=== PATIENT | female | born 1955 | race Two or more races ===

== ENCOUNTER 2017-12-26 14:31 | Inpatient (IN) | payer MEDICAID, OTHER ==
[~2017-12-26] VITALS: Ht 160 cm; Wt 100.6 kg
[2017-12-26] MEDS ORDERED: SODIUM CHLORIDE 0.9% 1,000 ML IV ONE (14:58)
[2017-12-26] MEDS ORDERED: ONDANSETRON HCL 4 MG/2 ML VIAL IV ONE (15:00)
[2017-12-26] MEDS ORDERED: METF-371 PO (16:13)
[2017-12-26] MEDS ORDERED: FERR-20 PO (16:13)
[2017-12-26] MEDS ORDERED: METO25TA5 PO (16:13)
[2017-12-26] MEDS ORDERED: SUCR1TAB38 OR (16:13)
[2017-12-26] MEDS ORDERED: FURO40TA4 PO (16:13)
[2017-12-26] MEDS ORDERED: PROP60CA8 PO (16:13)
[2017-12-26] MEDS ORDERED: SIMV-8 PO (16:13)
[2017-12-26] MEDS ORDERED: MELO1TAB56 PO (16:13)
[2017-12-26] MEDS ORDERED: SPIR25TA89 PO (16:13)
[2017-12-26] MEDS ORDERED: DEXTROSE (50%) 50ML SYRG IV PRN (16:15)
[2017-12-26] MEDS ORDERED: SODIUM CHLORIDE 0.9% 2,000 ML IV ONE (16:15)
[2017-12-26 16:18] LABS: Basophils # (auto) 0.1 uL; Eosinophils # (auto) 0.4 uL; Lymphocytes % (auto) 4.2 % (10.0-50.0)
[2017-12-26 16:20] LABS: Basophils % (auto) 0.2 % (0.0-2.0); Eosinophils % (auto) 1.8 % (0.0-7.0); Hematocrit 40.3 % (36.0-46.0); Mean Corpuscular Hemoglobin 26.2 pg (28.0-32.0); Mean Corpuscular Hgb Conc. 32.2 g/dL (32.0-36.0); Mean Corpuscular Volume 81.6 fL (80.0-100.0); Monocytes # (auto) 1.4 uL; Monocytes % (auto) 5.8 % (0.0-12.0); Neutrophils # (auto) 21.5 uL; Nucleated Red Blood Cells % 0.1 %; Platelet Count (auto) 173 10^3/uL (140-450); Red Blood Cells 4.94 10^6/uL (4.0-5.20); Red Cell Distribution Width 17.8 % (11.8-14.3); White Blood Cell 24.4 10^3/uL (4.4-10.8)
[2017-12-26] MEDS ORDERED: NALBUPHINE HCL 10 MG/1ml INJECTION IV PRN (16:30)
[2017-12-26] MEDS ORDERED: ONDANSETRON HCL 4 MG/2 ML VIAL IV PRN (16:30)
[2017-12-26] MEDS ORDERED: NITROGLYCERIN 0.4 MG SL TAB SL PRN (16:30)
[2017-12-26] MEDS ORDERED: HYDROcodone-ACET 5/325MG TAB PO PRN (16:30)
[2017-12-26] MEDS ORDERED: ACETAMINOPHEN 325 MG TAB PO PRN (16:30)
[2017-12-26 16:36] LABS: Alanine Aminotransferase 39 U/L (13-56); Albumin 3.1 g/dL (3.4-5.0); Amylase 52 U/L (25-115); Anion Gap 12 (5-15); Aspartate Aminotransferase 41 U/L (15-37); BUN/Creatinine Ratio 14.2; Bilirubin, Total 1.3 mg/dL (0.2-1.0); Blood Urea Nitrogen 18 mg/dL (7-18); Calcium 9.5 mg/dL (8.5-10.1); Carbon Dioxide 22 mmol/L (21-32); Chloride 103 mmol/L (98-107); GFR African American 55 mL/min; GFR Non-African American 45 mL/min; Glucose 227 mg/dL (74-106); Lipase 244 U/L (73-393); Magnesium 1.6 mg/dL (1.6-2.6); Sodium 137 mmol/L (136-145); Total Protein 8.4 g/dL (6.4-8.2)
[2017-12-26] MEDS ORDERED: cefTRIAXone 1GM/10ml IVPUSH 10 ML IV ONE (16:45)
[2017-12-26] MEDS ORDERED: VANCOMYCIN PER PHARMACY 0 MG IV SCH (16:45)
[2017-12-26] MEDS: SODIUM CHLORIDE 0.9% 1,000 ML IV SCH (16:52)
[2017-12-26 17:01] LABS: Alkaline Phosphatase 1221 U/L (45-117)
[2017-12-26] MEDS: ACCU-CHEK COMFORT CURVE STRIP VI SCH ×2 (17:43→22:18)
[2017-12-26] MEDS: InsuLIN REG 1unit/0.01ml Soln (100units/ml) SC SCH ×2 (17:45→22:30)
[2017-12-26] MEDS: Boost Glucose Control 8 Ounces PO SCH (17:47)
[2017-12-26] MEDS: SUCRALFATE 1 GM/10 ML ORAL SUSP PO SCH ×2 (17:55→22:17)
[2017-12-26] MEDS: VANCOMYCIN 1GM/250ML 250 ML IV SCH (18:54)
[2017-12-26 21:00] VITALS: BP 90/52
[2017-12-26 22:00] VITALS: BP 90/52
[2017-12-26] MEDS: METOPROLOL TARTRATE 25 MG TAB PO SCH (22:00)
[2017-12-26] MEDS: ATORVASTATIN 20 MG TAB PO SCH (22:17)
[2017-12-26] MEDS: FAMOTIDINE 20 MG TAB PO SCH (22:17)
[2017-12-26] MEDS: TEMAZEPAM 15 MG CAP PO PRN (22:17)
[2017-12-26 22:27] LABS: Lactic Acid w/Reflex 2.1 mmol/L (0.4-2.0)
[2017-12-26] MEDS: INSULIN LANTUS (GLARGINE) 1 /0.01ml (100units/ml) SC SCH (22:30)
[2017-12-26] MEDS ORDERED: INSLANTI SC (22:58)
[2017-12-27] MEDS: SODIUM CHLORIDE 0.9% 1,000 ML IV SCH ×3 (00:38→18:12)
[2017-12-27 05:00] VITALS: BP 99/60
[2017-12-27 06:03] LABS: Basophils # (auto) 0 uL; Basophils % (auto) 0.2 % (0.0-2.0); Eosinophils # (auto) 0.1 uL; Eosinophils % (auto) 1.4 % (0.0-7.0); Hematocrit 29.4 % (36.0-46.0); Hemoglobin 9.9 g/dL (12.2-16.2); Lymphocytes # (auto) 0.6 uL; Mean Corpuscular Hemoglobin 27.3 pg (28.0-32.0); Mean Corpuscular Hgb Conc. 33.8 g/dL (32.0-36.0); Mean Corpuscular Volume 80.6 fL (80.0-100.0); Monocytes # (auto) 0.5 uL; Monocytes % (auto) 6.2 % (0.0-12.0); Neutrophils # (auto) 6.8 uL; Neutrophils % (auto) 84.2 % (37.0-80.0); Platelet Count (auto) 86 10^3/uL (140-450); Red Blood Cells 3.64 10^6/uL (4.0-5.20); Red Cell Distribution Width 17.3 % (11.8-14.3); White Blood Cell 8.1 10^3/uL (4.4-10.8)
[2017-12-27 06:09] LABS: Albumin 2.5 g/dL (3.4-5.0); BUN/Creatinine Ratio 20.8; Bilirubin, Total 0.7 mg/dL (0.2-1.0); Calcium 8.1 mg/dL (8.5-10.1); Potassium 3.7 mmol/L (3.5-5.1); Total Protein 6.5 g/dL (6.4-8.2)
[2017-12-27] MEDS: ACCU-CHEK COMFORT CURVE STRIP VI SCH ×4 (06:20→22:05)
[2017-12-27] MEDS: InsuLIN REG 1unit/0.01ml Soln (100units/ml) SC SCH ×4 (06:20→22:06)
[2017-12-27] MEDS: SUCRALFATE 1 GM/10 ML ORAL SUSP PO SCH ×4 (06:20→22:15)
[2017-12-27 08:00] VITALS: BP 102/45
[2017-12-27] MEDS: Boost Glucose Control 8 Ounces PO SCH ×3 (08:00→18:00)
[2017-12-27 08:31] VITALS: BP 102/45
[2017-12-27] MEDS: FERROUS SULFATE 325 MG TAB PO SCH (10:16)
[2017-12-27] MEDS: METOPROLOL TARTRATE 25 MG TAB PO SCH ×2 (10:16→22:03)
[2017-12-27] MEDS: MULTIPLE VITAMIN TAB PO SCH (10:16)
[2017-12-27] MEDS: FAMOTIDINE 20 MG TAB PO SCH ×2 (10:16→22:01)
[2017-12-27 12:57] VITALS: BP 108/54
[2017-12-27 16:28] VITALS: BP 103/53
[2017-12-27] MEDS: cefTRIAXone 1GM/10ml IVPUSH 10 ML IV SCH (18:10)
[2017-12-27] MEDS: VANCOMYCIN 1GM/250ML 250 ML IV SCH (20:00)
[2017-12-27 22:00] VITALS: BP 108/56
[2017-12-27] MEDS: ATORVASTATIN 20 MG TAB PO SCH (22:01)
[2017-12-27] MEDS: TEMAZEPAM 15 MG CAP PO PRN (22:15)
[2017-12-27] MEDS: INSULIN LANTUS (GLARGINE) 1 /0.01ml (100units/ml) SC SCH (22:17)
[2017-12-28 01:34] LABS: Urine Bacteria NONE SEEN /hpf (None Seen); Urine Blood Negative /uL (Negative); Urine Specific Gravity 1.016 (1.001-1.035); Urine WBC 47 /hpf (0 - 5)
[2017-12-28] MEDS: SODIUM CHLORIDE 0.9% 1,000 ML IV SCH ×2 (02:52→09:27)
[2017-12-28 05:48] VITALS: BP 126/76
[2017-12-28] MEDS: SUCRALFATE 1 GM/10 ML ORAL SUSP PO SCH ×2 (06:22→11:57)
[2017-12-28] MEDS: InsuLIN REG 1unit/0.01ml Soln (100units/ml) SC SCH ×2 (06:23→11:58)
[2017-12-28] MEDS: ACCU-CHEK COMFORT CURVE STRIP VI SCH ×2 (06:23→11:58)
[2017-12-28 06:37] LABS: Basophils # (auto) 0 uL; Basophils % (auto) 0.4 % (0.0-2.0); Eosinophils # (auto) 0.2 uL; Hemoglobin 9.7 g/dL (12.2-16.2); Lymphocytes # (auto) 0.5 uL; Monocytes # (auto) 0.3 uL; Neutrophils # (auto) 3.1 uL; Nucleated Red Blood Cells % 0.1 %; Platelet Count (auto) 70 10^3/uL (140-450); White Blood Cell 4.2 10^3/uL (4.4-10.8)
[2017-12-28 06:40] LABS: Eosinophils % (auto) 4.9 % (0.0-7.0); Lymphocytes % (auto) 13.2 % (10.0-50.0); Mean Corpuscular Hgb Conc. 33.5 g/dL (32.0-36.0); Mean Corpuscular Volume 80.6 fL (80.0-100.0); Monocytes % (auto) 7.2 % (0.0-12.0); Neutrophils % (auto) 74.3 % (37.0-80.0); Red Cell Distribution Width 17.6 % (11.8-14.3)
[2017-12-28 06:54] LABS: Potassium 3.7 mmol/L (3.5-5.1)
[2017-12-28 06:59] LABS: Calcium 8.2 mg/dL (8.5-10.1)
[2017-12-28 08:00] VITALS: BP 121/71
[2017-12-28] MEDS: Boost Glucose Control 8 Ounces PO SCH ×2 (08:00→12:00)
[2017-12-28 09:00] VITALS: BP 130/70
[2017-12-28] MEDS: METOPROLOL TARTRATE 25 MG TAB PO SCH (09:24)
[2017-12-28] MEDS: cefTRIAXone 1GM/10ml IVPUSH 10 ML IV SCH (09:25)
[2017-12-28] MEDS: FERROUS SULFATE 325 MG TAB PO SCH (09:25)
[2017-12-28] MEDS: MULTIPLE VITAMIN TAB PO SCH (09:25)
[2017-12-28] MEDS: FAMOTIDINE 20 MG TAB PO SCH (09:25)
[2017-12-28 13:00] VITALS: BP 119/65
== END 2017-12-28 14:45 | disposition home or self-care (01) | DRG 469 ==
LOC: EDBD 14:31 → ER 14:38 → TELE 14:39 → TELE-WESTW 20:21
PROVIDERS: ADMIT Internal Medicine; ATTEND Internal Medicine
DX: N17.9 Acute kidney failure, unspecified (principal); E10.21 Type 1 diabetes mellitus with diabetic nephropathy; E44.0 Moderate protein-calorie malnutrition; E88.09 Other disorders of plasma-protein metabolism, not elsewhere classified; K52.9 Noninfective gastroenteritis and colitis, unspecified; N18.3 Chronic kidney disease, stage 3 (moderate); E86.0 Dehydration; E10.22 Type 1 diabetes mellitus with diabetic chronic kidney disease; I12.9 Hypertensive chronic kidney disease with stage 1 through stage 4 chronic kidney disease, or unspecified chronic kidney disease; D64.9 Anemia, unspecified; E66.9 Obesity, unspecified; J44.9 Chronic obstructive pulmonary disease, unspecified; Z79.4 Long term (current) use of insulin; Z83.3 Family history of diabetes mellitus; Z90.49 Acquired absence of other specified parts of digestive tract; Z68.39 Body mass index [BMI] 39.0-39.9, adult
CPT/HCPCS: 36415; 74176; 80048; 80053; 81001; 82150; 82962; 83036; 83605; 83690; 83735; 84443; 84484; 85025; 87040; 87045; 87086; 87493; 87899; 93005; 93306; 96361; 96374; 96375; J1815; J2405